=== PATIENT | female | born 1975 | race Caucasian/White ===

== ENCOUNTER 2021-12-16 09:34 | Emergency (ER) | payer OTHER ==
[~2021-12-16] VITALS: Ht 165.1 cm; Wt 81.2 kg
[2021-12-16 09:42] VITALS: BP 118/74
[2021-12-16] MEDS ORDERED: HYDROCODONE/APAP 5/325MG TABLET PO ONE (10:00)
[2021-12-16] MEDS ORDERED: KETOROLAC TROMETHAMINE INJ 60 MG/2 ML VIAL IM ONE (10:00)
[2021-12-16] MEDS ORDERED: CARI350T PO (10:01)
[2021-12-16] MEDS ORDERED: HYDR-4209 PO (10:01)
[2021-12-16] MEDS ORDERED: KETOROLAC TROMETHAMINE INJ 30 MG/ML VIAL ONE (10:15)
[2021-12-16] MEDS ORDERED: HYDROCODONE/APAP 5/325MG TABLET ONE (10:15)
--- NOTE | 2021-12-16 11:00 | NUR ---
PATIENT STILL IN PAIN, MADE MD AWARE. MD VERBALLY ORDERED DILAUDID 1MG IM. CARRIED OUT.
[2021-12-16] MEDS ORDERED: HYDROMORPHONE 1 MG/1 ML DISP.SYRIN ONE (11:05)
[2021-12-16] MEDS ORDERED: ONDANSETRON 4 MG TAB.RAPDIS ONE (11:15)
[2021-12-16] MEDS ORDERED: ONDANSETRON 4 MG TAB.RAPDIS SL ONE (11:30)
[2021-12-16] MEDS ORDERED: HYDROMORPHONE 1 MG/1 ML DISP.SYRIN IM ONE ×2 (11:30)
== END 2021-12-16 11:18 | disposition home or self-care (01) ==
LOC: ER 09:48
DX: M54.41 Lumbago with sciatica, right side (principal); Z79.899 Other long term (current) drug therapy
CPT/HCPCS: 99284; 96372 ×2; J1885; Q0162; J1170